=== PATIENT | female | born 1965 | race Caucasian/White ===

== ENCOUNTER 2016-04-04 10:38 | Outpatient (CLI) | payer OTHER | END 2016-04-04 19:04 | disposition home or self-care (01) | LOC: SMA 10:38 | PROVIDERS: ATTEND Family Medicine | DX: Z12.31 Encounter for screening mammogram for malignant neoplasm of breast (principal) | CPT/HCPCS: 77067; G0202 ==

== ENCOUNTER 2017-05-29 09:04 | Outpatient (CLI) | payer BC | END 2017-05-29 20:48 | disposition home or self-care (01) | LOC: SMA 09:04 | PROVIDERS: ATTEND Family Medicine | DX: Z12.31 Encounter for screening mammogram for malignant neoplasm of breast (principal) | CPT/HCPCS: 77067 ==

== ENCOUNTER 2018-06-19 10:06 | Outpatient (CLI) | payer BC | END 2018-06-19 21:20 | disposition home or self-care (01) | LOC: SMA 10:06 | PROVIDERS: ATTEND Family Medicine | DX: Z12.31 Encounter for screening mammogram for malignant neoplasm of breast (principal) | CPT/HCPCS: 77067 ==

== ENCOUNTER 2019-11-12 07:46 | Outpatient (CLI) | payer BC | END 2019-11-12 19:52 | disposition home or self-care (01) | LOC: SMA 07:46 | PROVIDERS: ATTEND Family Medicine | DX: Z12.31 Encounter for screening mammogram for malignant neoplasm of breast (principal) | CPT/HCPCS: 77067 ==

== ENCOUNTER 2020-12-06 08:43 | Outpatient (CLI) | payer OTHER | END 2020-12-06 20:35 | disposition home or self-care (01) | LOC: SMA 08:43 | PROVIDERS: ATTEND Family Medicine | DX: Z12.31 Encounter for screening mammogram for malignant neoplasm of breast (principal) | CPT/HCPCS: 77067 ==